=== PATIENT | female | born 1995 | race Caucasian/White ===

== ENCOUNTER 2020-10-16 15:46 | Outpatient (CLI) | payer OTHER, SELFPAY ==
[2020-10-19 16:38] LABS: Lyme Disease Ab (IgM), Blot Negative (Negative); Lyme Disease Ab(IgG), Blot Negative (Negative)
[2020-11-06 15:04] LABS: Blastomyces Antibody Negative
[2020-11-06 15:06] LABS: Candida Antibody Negative
[2020-11-06 15:09] LABS: Coccidioides Antibody Negative
[2020-11-06 15:10] LABS: Histoplasma Antibody Negative
== END 2020-10-16 15:47 | disposition home or self-care (01) ==
DX: R53.83 Other fatigue (principal); K58.9 Irritable bowel syndrome, unspecified; R19.7 Diarrhea, unspecified; R10.9 Unspecified abdominal pain
CPT/HCPCS: 36415; 86606; 86612; 86617; 86628; 86635; 86698

== ENCOUNTER 2020-12-24 11:30 | Emergency (ER) | payer OTHER, SELFPAY ==
[2020-12-24 11:52] VITALS: BP 109/53; PULSE 91; RESP 16; TEMP 36.6; O2SAT 100
--- NOTE | 2020-12-24 12:41 | ED.FEMALEGU ---
HPI - Female Genitourinary General Chief complaint: Urogenital-Female Stated complaint: UTI SYMPTOMS Time Seen by Provider: 12/24/20 12:31 Source: patient and RN notes reviewed Mode of arrival: ambulatory Limitations: no limitations History of Present Illness HPI Narrative: Patient presents today requesting to be tested for UTI. States 2 days ago she would had been traveling for long periods of time without using the restroom and felt like she may have a UTI. Denies dysuria, hematuria, frequency, abdominal pain or back pain. Patient also states she may have a genital yeast infection due to increase in her normal white/Cloudy vaginal discharge x3 weeks. Denies any external pain/burning, swelling or redness. 3 weeks ago she got off a 1 month course of antibiotics for Lyme disease. Related Data Home Medications Medication Instructions Recorded Confirmed mirtazapine 30 mg tablet 30 mg PO QHS 10/16/20 10/16/20 Allergies Allergy/AdvReac Type Severity Reaction Status Date / Time No Known Allergies Allergy Unverified 10/16/20 14:36 Review of Systems Review of Systems: CONSTITUTIONAL: Denies body aches, fever, chills, or sweats. EYES: Denies visual changes, redness, or discharge. ENT: Denies rhinorrhea, congestion, sore throat, or otalgia. CARDIOVASCULAR: Denies chest pain, palpitations, or edema. RESPIRATORY: Denies cough or dyspnea. GASTROINTESTINAL: Denies abdominal pain, nausea, vomiting, or diarrhea. GENITOURINARY: Denies dysuria or hematuria.+ Increase normal vaginal discharge SKIN: Denies rash, itching, or wounds. MUSCULOSKELETAL: Denies back pain, joint pain, or myalgia. NEUROLOGIC: Denies headache, numbness, tingling, or weakness. PSYCH: Denies depression or anxiety. [facility] Past Medical History Medical History Lyme disease Social History Social History Smoking status: Never smoker Alcohol intake: never Substance use: never Comments At time of signature, I have reviewed and agree with nursing past medical, surgical, social and family history unless otherwise noted. Please see nursing chart for further information. There is no relevant family history pertinent to the presenting complaint Exam Narrative: GENERAL: Well-appearing, well-nourished, and in no acute distress. HEAD: Normocephalic, atraumatic. EYES: EOMI. No redness or drainage. Conjunctivae normal. NECK: Normal AROM. Supple. CHEST: No respiratory distress. Clear to auscultation. HEART: Regular rate and rhythm. No murmur appreciated. Normal peripheral pulses. ABDOMEN: Soft, nontender, nondistended, normal active bowel sounds. :Mildly erythematous external genitalia with small amount of thick white vaginal discharge MUSCULOSKELETAL: No bony tenderness. EXTREMITIES: Normal range of motion. No edema. SKIN: Warm, dry, no rash. Capillary refill normal. Normal skin turgor. NEURO: No focal deficits. Alert and oriented x3. Gait steady. PSYCH: Normal affect. No signs of depression or anxiety. Course Vital Signs Vital signs: Vital Signs Temperature 98 F 12/24/20 11:52 Pulse Rate 91 12/24/20 11:52 Respiratory Rate 16 12/24/20 11:52 Blood Pressure 109/53 L 12/24/20 11:52 Pulse Oximetry 100 12/24/20 11:52 Temperature 98 F 12/24/20 11:52 Pulse Rate 91 12/24/20 11:52 Respiratory Rate 16 12/24/20 11:52 Blood Pressure 109/53 L 12/24/20 11:52 Pulse Oximetry 100 12/24/20 11:52 Reviewed MDM - Female Genitourinary Differential Diagnosis Differential diagnosis: Likely urinary tract infection, bacterial vaginosis, vaginitis, cystitis and other ([place]is) Lab Data Attestation: I reviewed the patient's lab results. Labs: Urine Glucose Negative Reference Range: Negative Urine Bilirubin Negative
== END 2020-12-24 12:55 | disposition home or self-care (01) ==
PROVIDERS: Emergency Provider Nurse Practitioner
DX: B37.3 Candidiasis of vulva and vagina (principal)
CPT/HCPCS: 81003; 99213; G0463

== ENCOUNTER 2021-01-26 18:11 | Emergency (ER) | payer OTHER, SELFPAY ==
[2021-01-26 18:19] VITALS: BP 95/56; PULSE 75; RESP 16; TEMP 36.8; O2SAT 100
--- NOTE | 2021-01-26 18:47 | ED.EAR ---
HPI - Ear Problem General Chief complaint: Ear Stated complaint: ear itching/earring removal Source: patient Mode of arrival: ambulatory Limitations: no limitations History of Present Illness HPI Narrative: Patient is a 25-year-old female who presents complaining that she has an earring stuck in left pinna. She reports hearing has been stuck for approximately 1 year. She denies pain, she reports that she has been unable to remove back. Patient also reporting right ear pain and pruritus x3 days. She denies all other complaints. She denies significant medical history. She denies using [id number] medications prior to arrival. MD Complaint: ear pain Related Data Allergies Allergy/AdvReac Type Severity Reaction Status Date / Time Penicillins AdvReac Nausea and Verified 01/26/21 18:34 Vomiting Review of Systems Review of Systems: CONSTITUTIONAL: Denies fever, chills, or sweats. EYES: Denies visual changes, redness, or discharge. ENT: Right ear pain and pruritus, left ear foreign body CARDIOVASCULAR: Denies chest pain, palpitations, or edema. RESPIRATORY: Denies cough or dyspnea. GASTROINTESTINAL: Denies abdominal pain, nausea, vomiting, or diarrhea. GENITOURINARY: Denies dysuria or hematuria. SKIN: Denies rash or itching. MUSCULOSKELETAL: Denies back pain, joint pain, or myalgia. NEUROLOGIC: Denies headache, numbness, dizziness, or weakness. PSYCHIATRIC: Denies anxiety or depression. [facility] Past Medical History Medical History (Updated 01/26/21 @ 18:51 by HIRO Jaramillo) IBS (irritable bowel syndrome) Lyme disease Social History Social History Smoking status: Never smoker Alcohol intake: never Substance use: never Comments At the time of signature, I have reviewed and agree with nursing past medical, surgical, social, and family history unless otherwise noted. Please see nursing chart for further information. There is no relevant family history pertinent to the presenting complaint. Exam Narrative: GENERAL: Well-appearing, well-nourished, and in no acute distress. HEAD: Normocephalic, atraumatic. EYES: EOMI. No redness or drainage. Conjunctiva are normal. ENT: Mucous membranes pink and moist. Right ear canal erythematous, TM intact. Throat normal. Uvula midline. NECK: AROM. Supple. No lymphadenopathy. CHEST: No respiratory distress. HEART: Regular rate and rhythm. EXTREMITIES: Normal range of motion. No edema. SKIN: Warm, dry, no rash. NEURO: No focal deficits. Alert and oriented x3. Gait steady. PSYCH: Normal affect. No signs of depression or anxiety. Course Vital Signs Vital signs: Vital Signs Temperature 36.8 C 01/26/21 18:19 Pulse Rate 75 01/26/21 18:19 Respiratory Rate 16 01/26/21 18:19 Blood Pressure 95/56 L 01/26/21 18:19 Pulse Oximetry 100 01/26/21 18:19 Temperature 36.8 C 01/26/21 18:19 Pulse Rate 75 01/26/21 18:19 Respiratory Rate 16 01/26/21 18:19 Blood Pressure 95/56 L 01/26/21 18:19 Pulse Oximetry 100 01/26/21 18:19 Medical Decision Making MDM Narrative Medical decision making narrative: Patient's stuck earring was removed with a Chloé clamp. Right ear shows otitis externa. Discussed using eardrops. Patient agrees with plan of care. Patient is stable for discharge home with outpatient follow-up as directed. Vital Signs Vital Signs: Vital Signs Temperature 36.8 C 01/26/21 18:19 Pulse Rate 75 01/26/21 18:19 Respiratory Rate 16 01/26/21 18:19 Blood Pressure 95/56 L 01/26/21 18:19 Pulse Oximetry 100 01/26/21 18:19 Temperature 36.8 C 01/26/21 18:19 Pulse Rate 75 01/26/21 18:19 Respiratory Rate 16 01/26/21 18:19 Blood Pressure 95/56 L 01/26/21 18:19 Pulse Oximetry 100 01/26/21 18:19 Critical Care Time Critical Care Time Critical Care Time: No Discharge Plan Discharge Clinical Impression: Otitis externa Patient Disp
== END 2021-01-26 18:58 | disposition home or self-care (01) ==
PROVIDERS: Emergency Provider Nurse Practitioner; PCP Internal Medicine Infectious Disease
DX: H60.91 Unspecified otitis externa, right ear (principal)
CPT/HCPCS: 99213; G0463